=== PATIENT | female | born 1945 | race Caucasian/White ===

== ENCOUNTER 2020-10-10 09:42 | Outpatient (CLI) | payer MEDICARE, SELFPAY ==
--- NOTE | ~2020-10-10 | MR_ITS ---
EXAMINATION: MR pelvis wo/w con DATE: 10/10/2020 11:26 INDICATION: Chronic low back pain. TECHNIQUE: Magnetic resonance imaging (MRI) of the pelvis was performed without and with 16 mL MultiH ance intravenous contrast. Sequences included coronal oblique (coronal to sacrum) T1-weighted FSE, T2 -weighted FSE, and T2-weighted FS FSE, axial oblique (axial to sacrum) T1-weighted FSE and T2-weighte d FS FSE, sagittal PD-weighted FSE, and postcontrast axial oblique and coronal oblique T1-weighted FS FSE. COMPARISON: None. FINDINGS: There is levocurvature of lumbar spine. There is severe lower lumbar spondylosis. No fracture. There is mild osteoarthritis of the sacroiliac joints. IMPRESSION: 1. Mild osteoarthritis of the sacroiliac joints. No evidence of inflammatory arthropathy. 2. Severe lower lumbar spondylosis. Reviewed, dictated and finalized at location A. IMPRESSION: 1. Mild osteoarthritis of the sacroiliac joints. No evidence of inflammatory ar thropathy. 2. Severe lower lumbar spondylosis.
[2020-10-10 10:32] LABS: Estimated Glomerular Filt Rate > 60
== END 2020-10-10 09:43 | disposition home or self-care (01) ==
DX: M47.898 Other spondylosis, sacral and sacrococcygeal region (principal); M47.816 Spondylosis without myelopathy or radiculopathy, lumbar region
CPT/HCPCS: 72197; A9577